=== PATIENT | female | born 1945 | race African-American/Black ===

== ENCOUNTER 2022-03-24 13:52 | Inpatient (IN) | payer OTHER ==
[~2022-03-24] VITALS: Ht 157.5 cm; Wt 70.4 kg
[2022-03-24 20:10] LABS: EOSINOPHILS % 3.4 % (0.0-5.0); HEMATOCRIT. 37.9 % (36.0-48.0); HEMOGLOBIN. 12.8 g/dL (12.0-16.0); LYMPHOCYTES % 32.9 % (20.0-50.0); MEAN CORPUSCULAR HEMOGLOBIN 27.6 pg (28.0-32.0); MEAN CORPUSCULAR VOLUME 81.8 fL (81.0-99.0); MEAN PLATELET VOLUME 8.4 fl (7.4-10.4); MONOCYTES % 5.2 % (2.0-8.0); NEUTROPHILS % 57.5 % (40.0-76.0); PLATELET 185 x1000/uL (130-400); RED BLOOD CELL COUNT 4.64 mill/uL (4.2-5.4); RED CELL DISTRIBUTION WIDTH 13.6 % (11.6-14.6)
[2022-03-24 20:18] LABS: CHLORIDE 103 mEq/L (98-107); INR 1.1; PROTHROMBIN TIME 11.9 sec (9.6-11.0)
[2022-03-24] MEDS ORDERED: MAGNESIUM/ALUMINUM HYDROXIDE/SIMETHICONE 30ML UDC PO STA (21:13)
[2022-03-24] MEDS ORDERED: POTASSIUM CHLORIDE 20MEQ TABLET SR PO ONE (21:15)
[2022-03-24] MEDS ORDERED: ASPIRIN 81MG TABLET PO ONE (21:15)
[2022-03-25] VITALS (7 sets, daily range): BP systolic 126–188; BP diastolic 63–86
[2022-03-25] MEDS ORDERED: DEXTROSE 50% WATER 50ML SYRINGE IV PRN ×2 (02:45→09:45)
[2022-03-25] MEDS ORDERED: CARV3.1242 MT (09:39)
[2022-03-25] MEDS ORDERED: CLOP75TA33 MT (09:40)
[2022-03-25] MEDS ORDERED: LOSA100T32 MT (09:41)
[2022-03-25] MEDS ORDERED: ASPI-1497 MT (09:42)
[2022-03-25] MEDS ORDERED: LABETALOL 5MG/ML SYR 20 MG/4 ML SYRINGE IV PRN (09:45)
[2022-03-25] MEDS ORDERED: IPRATROPIUM/ALBUTEROL 0.5-3(2.5)MG/3ML NEB HHN PRN (09:45)
[2022-03-25] MEDS ORDERED: DOCUSATE SODIUM 100MG CAPSULE PO PRN (09:45)
[2022-03-25] MEDS ORDERED: HYDROCODONE/ACETAMINOPHEN 5/325MG TABLET PO PRN (09:45)
[2022-03-25] MEDS ORDERED: ACETAMINOPHEN 325MG TABLET PO PRN ×2 (09:45)
[2022-03-25] MEDS: CLONIDINE 0.1MG TABLET PO PRN ×2 (09:55→17:26)
[2022-03-25] MEDS ORDERED: NALOXONE HCL 0.4MG/ML VIAL IV PRN (10:45)
[2022-03-25] MEDS: BLOOD SUGAR DIAGNOSTIC STRIP TEST SCH ×3 (11:50→20:59)
[2022-03-25] MEDS: INSULIN LISPRO 100 UNITS/ML SUBCUT SCH ×3 (12:20→20:59)
[2022-03-25] MEDS: LOSARTAN POTASSIUM 100 MG TABLET PO SCH (12:57)
[2022-03-25] MEDS: CLOPIDOGREL 75MG TABLET PO SCH (12:57)
[2022-03-25] MEDS ORDERED: POTASSIUM CHLORIDE 20MEQ/PACKET PO ONE (14:15)
[2022-03-25] MEDS: PANTOPRAZOLE SODIUM 40 MG/VIAL IV SCH (15:27)
[2022-03-25] MEDS: DEXT 5%/LACTATED RINGERS 1,000 ML IV SCH (15:28)
[2022-03-25] MEDS ORDERED: CARVEDILOL 3.125 MG TABLET PO SCH (17:00)
[2022-03-25] MEDS: CARVEDILOL 6.25 MG TABLET PO SCH (20:58)
[2022-03-26] VITALS: BP 147/76
[2022-03-26] MEDS: DEXT 5%/LACTATED RINGERS 1,000 ML IV SCH ×2 (03:19→17:30)
[2022-03-26 03:44] LABS: CLARITY URINE CLEAR (CLEAR); COLOR URINE YELLOW (YELLOW); KETONES URINE 2+ (NEGATIVE); LEUKOCYTE ESTERASE URINE 2+ (NEGATIVE); NITRITE URINE NEGATIVE (NEGATIVE); OCCULT BLOOD URINE NEGATIVE (NEGATIVE); PH URINE 5.5 (4.5-8.0); PROTEIN URINE TRACE (NEGATIVE); SPECIFIC GRAVITY URINE 1.016 (1.005-1.030)
[2022-03-26 04:00] VITALS: BP 145/96
[2022-03-26 05:59] LABS: BASOPHILS % 0.8 % (0.0-2.0); EOSINOPHILS % 3.6 % (0.0-5.0); HEMATOCRIT. 36.9 % (36.0-48.0); HEMOGLOBIN. 12.6 g/dL (12.0-16.0); LYMPHOCYTES % 20.5 % (20.0-50.0); MEAN CORPUSCULAR HEMOGLOBIN 27.9 pg (28.0-32.0); MEAN CORPUSCULAR VOLUME 81.4 fL (81.0-99.0); MEAN PLATELET VOLUME 8.6 fl (7.4-10.4); NEUTROPHILS % 68.1 % (40.0-76.0); PLATELET 149 x1000/uL (130-400); RED BLOOD CELL COUNT 4.53 mill/uL (4.2-5.4); RED CELL DISTRIBUTION WIDTH 13.5 % (11.6-14.6)
[2022-03-26] MEDS: INSULIN LISPRO 100 UNITS/ML SUBCUT SCH ×4 (06:32→21:00)
[2022-03-26] MEDS: BLOOD SUGAR DIAGNOSTIC STRIP TEST SCH ×4 (06:32→21:00)
[2022-03-26] MEDS ORDERED: POTASSIUM CHLORIDE 20MEQ TABLET SR PO NR (07:00)
[2022-03-26 08:00] VITALS: BP 198/64
[2022-03-26] MEDS: PANTOPRAZOLE SODIUM 40 MG/VIAL IV SCH (09:02)
[2022-03-26] MEDS: ASPIRIN 81MG EC TABLET PO SCH (09:03)
[2022-03-26] MEDS: CLOPIDOGREL 75MG TABLET PO SCH (09:03)
[2022-03-26] MEDS: CARVEDILOL 6.25 MG TABLET PO SCH ×2 (09:03→21:13)
[2022-03-26] MEDS: LOSARTAN POTASSIUM 100 MG TABLET PO SCH (09:03)
[2022-03-26] MEDS ORDERED: REGADENOSON 0.4 MG/5 ML IV NR (09:15)
[2022-03-26] MEDS: CLONIDINE 0.1MG TABLET PO PRN (10:36)
[2022-03-26] MEDS ORDERED: COR6 PO (11:55)
[2022-03-26] MEDS ORDERED: LORA-249 MT (11:55)
[2022-03-26] MEDS ORDERED: AMLO10TA80 PO (11:55)
[2022-03-26] MEDS ORDERED: PANT40TA51 MT (11:55)
[2022-03-26] MEDS ORDERED: NITR0.4T49 SL (11:55)
[2022-03-26 12:00] VITALS: BP 178/81
[2022-03-26] MEDS: AMLODIPINE 10MG TABLET PO SCH (13:03)
[2022-03-26 16:00] VITALS: BP 175/72
[2022-03-26 20:00] VITALS: BP 190/72
[2022-03-27] VITALS: BP 147/78
[2022-03-27] MEDS ORDERED: PANTOPRAZOLE SODIUM 40 MG/VIAL IV SCH (01:30)
[2022-03-27 04:00] VITALS: BP 189/85
[2022-03-27] MEDS: HYDRALAZINE 20MG/ML VIAL IV PRN (04:11)
[2022-03-27] MEDS: ONDANSETRON HCL 4MG/2ML INJ IV PRN ×3 (05:02→21:43)
[2022-03-27 06:31] LABS: BASOPHILS % 0.8 % (0.0-2.0); EOSINOPHILS % 4.3 % (0.0-5.0); HEMATOCRIT. 39.9 % (36.0-48.0); HEMOGLOBIN. 13.4 g/dL (12.0-16.0); MEAN CORPUSCULAR HEMOGLOBIN 27.2 pg (28.0-32.0); MEAN CORPUSCULAR VOLUME 81.3 fL (81.0-99.0); MEAN PLATELET VOLUME 8.5 fl (7.4-10.4); MONOCYTES % 6.5 % (2.0-8.0); NEUTROPHILS % 64.4 % (40.0-76.0); PLATELET 164 x1000/uL (130-400); RED CELL DISTRIBUTION WIDTH 13.4 % (11.6-14.6)
[2022-03-27] MEDS: DEXT 5%/LACTATED RINGERS 1,000 ML IV SCH (06:36)
[2022-03-27] MEDS: BLOOD SUGAR DIAGNOSTIC STRIP TEST SCH ×4 (06:45→21:12)
[2022-03-27] MEDS: INSULIN LISPRO 100 UNITS/ML SUBCUT SCH ×4 (06:46→21:00)
[2022-03-27 08:00] VITALS: BP 171/83
[2022-03-27] MEDS: SODIUM CHLORIDE 0.45% 1,000 ML IV SCH (08:45)
[2022-03-27] MEDS: ASPIRIN 81MG EC TABLET PO SCH (09:02)
[2022-03-27] MEDS: CLOPIDOGREL 75MG TABLET PO SCH (09:04)
[2022-03-27] MEDS: LOSARTAN POTASSIUM 100 MG TABLET PO SCH (09:04)
[2022-03-27] MEDS: CARVEDILOL 6.25 MG TABLET PO SCH ×2 (09:04→21:26)
[2022-03-27] MEDS: AMLODIPINE 10MG TABLET PO SCH (09:05)
[2022-03-27] MEDS: HYDRALAZINE HCL 50MG TABLET PO SCH ×2 (09:30→21:26)
[2022-03-27 11:59] LABS: CLARITY URINE CLEAR (CLEAR); COLOR URINE YELLOW (YELLOW); KETONES URINE 1+ (NEGATIVE); LEUKOCYTE ESTERASE URINE NEGATIVE (NEGATIVE); NITRITE URINE NEGATIVE (NEGATIVE); OCCULT BLOOD URINE 1+ (NEGATIVE); PROTEIN URINE NEGATIVE (NEGATIVE)
[2022-03-27 12:12] VITALS: BP 164/86
[2022-03-27] MEDS ORDERED: NA PHOS,M-B/NA PHOS,DI-BA ENEMA 118ML PR PRN (13:15)
[2022-03-27] MEDS ORDERED: BISACODYL 10MG SUPP PR PRN (13:15)
[2022-03-27] MEDS ORDERED: POTASSIUM CHLORIDE INJ 40 MEQ in DEXT 5% WATER 500 ML IV SCH (15:00)
[2022-03-27 16:00] VITALS: BP 146/82
[2022-03-27 20:00] VITALS: BP 132/63
[2022-03-27] MEDS: PANTOPRAZOLE SODIUM 40 MG/VIAL IV SCH (21:25)
[2022-03-28] VITALS (8 sets, daily range): BP systolic 124–187; BP diastolic 53–123
[2022-03-28] MEDS: SODIUM CHLORIDE 0.45% 1,000 ML IV SCH ×3 (01:33→18:02)
[2022-03-28 03:27] LABS: BASOPHILS % 0.7 % (0.0-2.0); EOSINOPHILS % 3.5 % (0.0-5.0); HEMATOCRIT. 38.5 % (36.0-48.0); HEMOGLOBIN. 13.2 g/dL (12.0-16.0); MEAN CORPUSCULAR HEMOGLOBIN 27.7 pg (28.0-32.0); MEAN CORPUSCULAR VOLUME 80.8 fL (81.0-99.0); MEAN PLATELET VOLUME 8.2 fl (7.4-10.4); MONOCYTES % 6.4 % (2.0-8.0); NEUTROPHILS % 69.4 % (40.0-76.0); PLATELET 154 x1000/uL (130-400); RED BLOOD CELL COUNT 4.76 mill/uL (4.2-5.4); RED CELL DISTRIBUTION WIDTH 13.6 % (11.6-14.6)
[2022-03-28 03:35] LABS: INR 1.1; PROTHROMBIN TIME 11.9 sec (9.6-11.0)
[2022-03-28 04:29] LABS: PHOSPHORUS 2.3 mg/dL (2.5-4.9)
[2022-03-28 04:46] LABS: FOLIC ACID (FOLATE) SERUM 4.8 ng/mL (>5.38)
[2022-03-28] MEDS: BLOOD SUGAR DIAGNOSTIC STRIP TEST SCH ×4 (07:10→20:18)
[2022-03-28] MEDS: INSULIN LISPRO 100 UNITS/ML SUBCUT SCH ×4 (07:10→20:18)
[2022-03-28] MEDS: HYDRALAZINE HCL 50MG TABLET PO SCH ×2 (08:48→20:10)
[2022-03-28] MEDS: AMLODIPINE 10MG TABLET PO SCH ×2 (08:48→09:00)
[2022-03-28] MEDS: CARVEDILOL 6.25 MG TABLET PO SCH ×2 (08:48→20:10)
[2022-03-28] MEDS: PANTOPRAZOLE SODIUM 40 MG/VIAL IV SCH ×2 (09:45→20:09)
[2022-03-28] MEDS: FOLIC ACID 1MG TABLET PO SCH (12:00)
[2022-03-28] MEDS ORDERED: ALBUTEROL (0.083%) 2.5MG/3ML NEB HHN PRN (12:15)
[2022-03-28] MEDS ORDERED: IPRATROPIUM BROMIDE (0.02%) 0.5MG/2.5ML NEB HHN PRN (12:15)
[2022-03-28] MEDS: ONDANSETRON HCL 4MG/2ML INJ IV PRN (13:14)
[2022-03-29] MEDS: SODIUM CHLORIDE 0.45% 1,000 ML IV SCH (03:29)
[2022-03-29 03:59] LABS: EOSINOPHILS % 4.3 % (0.0-5.0); HEMATOCRIT. 34.9 % (36.0-48.0); HEMOGLOBIN. 11.9 g/dL (12.0-16.0); LYMPHOCYTES % 24.9 % (20.0-50.0); MEAN CORPUSCULAR HEMOGLOBIN 27.5 pg (28.0-32.0); MEAN CORPUSCULAR VOLUME 80.4 fL (81.0-99.0); MEAN PLATELET VOLUME 8.1 fl (7.4-10.4); MONOCYTES % 6.6 % (2.0-8.0); NEUTROPHILS % 63.2 % (40.0-76.0); PLATELET 153 x1000/uL (130-400); RED BLOOD CELL COUNT 4.34 mill/uL (4.2-5.4); RED CELL DISTRIBUTION WIDTH 13.7 % (11.6-14.6)
[2022-03-29 04:09] LABS: INR 1.1
[2022-03-29 04:15] LABS: PHOSPHORUS 3.2 mg/dL (2.5-4.9)
[2022-03-29 04:19] VITALS: BP 134/96
[2022-03-29] MEDS ORDERED: POTASSIUM CHLORIDE INJ 40 MEQ in DEXT 5% WATER 250 ML IV NR ×2 (05:15→06:30)
[2022-03-29] MEDS ORDERED: MAGNESIUM SULFATE 3 GM in DEXT 5% WATER 96 ML IV NR (05:15)
[2022-03-29] MEDS: BLOOD SUGAR DIAGNOSTIC STRIP TEST SCH ×3 (06:38→21:32)
[2022-03-29] MEDS: INSULIN LISPRO 100 UNITS/ML SUBCUT SCH ×4 (07:20→21:00)
[2022-03-29 08:00] VITALS: BP 173/8
[2022-03-29] MEDS ORDERED: KCL 20MEQ/100ML PREMIX 100 ML IV NR (09:00)
[2022-03-29] MEDS: PANTOPRAZOLE SODIUM 40 MG/VIAL IV SCH ×2 (09:10→21:10)
[2022-03-29] MEDS: AMLODIPINE 10MG TABLET PO SCH (09:10)
[2022-03-29] MEDS: CARVEDILOL 6.25 MG TABLET PO SCH ×2 (09:10→21:00)
[2022-03-29] MEDS: FOLIC ACID 1MG TABLET PO SCH (09:11)
[2022-03-29] MEDS: HYDRALAZINE HCL 50MG TABLET PO SCH ×2 (09:11→21:00)
[2022-03-29] MEDS: ONDANSETRON HCL 4MG/2ML INJ IV PRN (09:29)
[2022-03-29] MEDS ORDERED: MAGNESIUM 4 G PREMIX 100 ML IV NR (10:00)
[2022-03-29 10:28] VITALS: BP 160/70
[2022-03-29 11:38] VITALS: BP 141/64
[2022-03-29] MEDS ORDERED: PROPOFOL 200MG/20ML VIAL IV ONE (13:09)
[2022-03-29] MEDS ORDERED: LIDOCAINE HCL 1% 10 MG/ML 10ML VIAL ONE (13:09)
[2022-03-29 16:00] VITALS: BP 137/53
[2022-03-29] MEDS: SUCRALFATE 1G TABLET PO SCH ×2 (16:18→21:10)
[2022-03-29] MEDS: METOCLOPRAMIDE HCL 10MG/2ML VIAL IV SCH ×2 (16:19→21:10)
[2022-03-29 20:45] VITALS: BP 108/44
[2022-03-29] MEDS: SUCRALFATE 1 G/10 ML UDC PO SCH (21:53)
[2022-03-30 00:22] VITALS: BP 135/74
[2022-03-30] MEDS: SODIUM CHLORIDE 0.45% 1,000 ML IV SCH ×2 (01:05→12:36)
[2022-03-30 04:18] VITALS: BP 116/51
[2022-03-30 05:38] LABS: BASOPHILS % 0.7 % (0.0-2.0); EOSINOPHILS % 2.7 % (0.0-5.0); HEMATOCRIT. 36.6 % (36.0-48.0); HEMOGLOBIN. 12.6 g/dL (12.0-16.0); LYMPHOCYTES % 24.7 % (20.0-50.0); MEAN CORPUSCULAR HEMOGLOBIN 27.5 pg (28.0-32.0); MEAN CORPUSCULAR VOLUME 80.2 fL (81.0-99.0); MEAN PLATELET VOLUME 8.5 fl (7.4-10.4); MONOCYTES % 7.5 % (2.0-8.0); NEUTROPHILS % 64.4 % (40.0-76.0); PLATELET 171 x1000/uL (130-400); RED BLOOD CELL COUNT 4.57 mill/uL (4.2-5.4); RED CELL DISTRIBUTION WIDTH 13.6 % (11.6-14.6)
[2022-03-30 06:04] LABS: PHOSPHORUS 2.9 mg/dL (2.5-4.9)
[2022-03-30] MEDS: SUCRALFATE 1 G/10 ML UDC PO SCH ×4 (06:18→20:52)
[2022-03-30] MEDS: METOCLOPRAMIDE HCL 10MG/2ML VIAL IV SCH ×4 (06:18→20:53)
[2022-03-30] MEDS: BLOOD SUGAR DIAGNOSTIC STRIP TEST SCH ×4 (06:27→20:53)
[2022-03-30] MEDS: INSULIN LISPRO 100 UNITS/ML SUBCUT SCH ×4 (07:20→20:56)
[2022-03-30 08:00] VITALS: BP 154/76
[2022-03-30] MEDS: PANTOPRAZOLE SODIUM 40 MG/VIAL IV SCH ×2 (09:32→20:53)
[2022-03-30] MEDS: HYDRALAZINE HCL 50MG TABLET PO SCH ×2 (09:33→20:53)
[2022-03-30] MEDS: CARVEDILOL 6.25 MG TABLET PO SCH ×2 (09:33→20:53)
[2022-03-30] MEDS: CLOPIDOGREL 75MG TABLET PO SCH (09:33)
[2022-03-30] MEDS: ASPIRIN 81MG EC TABLET PO SCH (09:33)
[2022-03-30] MEDS: FOLIC ACID 1MG TABLET PO SCH (09:33)
[2022-03-30] MEDS: AMLODIPINE 10MG TABLET PO SCH (09:33)
[2022-03-30 12:00] VITALS: BP 113/66
[2022-03-30] MEDS ORDERED: BISACODYL 5MG TABLET PO NR (13:15)
[2022-03-30 16:00] VITALS: BP 142/65
[2022-03-30 20:00] VITALS: BP 142/75
[2022-03-31] VITALS: BP 132/45
[2022-03-31] MEDS: SODIUM CHLORIDE 0.45% 1,000 ML IV SCH (01:24)
[2022-03-31] MEDS: ONDANSETRON HCL 4MG/2ML INJ IV PRN ×2 (02:12→09:22)
[2022-03-31 04:00] VITALS: BP 140/95
[2022-03-31] MEDS: SUCRALFATE 1 G/10 ML UDC PO SCH ×4 (06:52→21:56)
[2022-03-31] MEDS: METOCLOPRAMIDE HCL 10MG/2ML VIAL IV SCH ×3 (06:52→17:24)
[2022-03-31] MEDS: BLOOD SUGAR DIAGNOSTIC STRIP TEST SCH ×4 (06:59→21:57)
[2022-03-31] MEDS: INSULIN LISPRO 100 UNITS/ML SUBCUT SCH ×4 (07:20→21:00)
[2022-03-31 08:00] VITALS: BP 140/64
[2022-03-31] MEDS: PANTOPRAZOLE SODIUM 40 MG/VIAL IV SCH (09:20)
[2022-03-31] MEDS: AMLODIPINE 10MG TABLET PO SCH (09:21)
[2022-03-31] MEDS: HYDRALAZINE HCL 50MG TABLET PO SCH ×2 (09:21→21:57)
[2022-03-31] MEDS: CARVEDILOL 6.25 MG TABLET PO SCH ×2 (09:21→21:57)
[2022-03-31] MEDS: FOLIC ACID 1MG TABLET PO SCH (09:21)
[2022-03-31] MEDS: ASPIRIN 81MG EC TABLET PO SCH (09:21)
[2022-03-31] MEDS: CLOPIDOGREL 75MG TABLET PO SCH (09:36)
[2022-03-31 12:00] VITALS: BP 155/76
[2022-03-31] MEDS: HYDRALAZINE 20MG/ML VIAL IV PRN ×2 (12:29→14:21)
[2022-03-31 16:00] VITALS: BP 134/62
[2022-03-31 20:00] VITALS: BP 142/50
[2022-03-31] MEDS ORDERED: ONDANSETRON HCL 4MG/2ML INJ IV PRN (21:15)
[2022-03-31] MEDS: ONDANSETRON HCL 4MG/2ML INJ IV SCH (21:56)
[2022-03-31] MEDS: OMEPRAZOLE 20MG CAPSULE EXTENDED RELEASE PO SCH (21:56)
[2022-04-01] VITALS (7 sets, daily range): BP systolic 110–163; BP diastolic 59–83
[2022-04-01] MEDS: SODIUM CHLORIDE 0.45% 1,000 ML IV SCH ×3 (00:59→16:38)
[2022-04-01] MEDS: SUCRALFATE 1 G/10 ML UDC PO SCH ×4 (06:54→20:41)
[2022-04-01] MEDS: METOCLOPRAMIDE HCL 10MG/2ML VIAL IV SCH ×4 (06:54→20:42)
[2022-04-01 06:55] LABS: BASOPHILS % 0.7 % (0.0-2.0); EOSINOPHILS % 1.8 % (0.0-5.0); HEMATOCRIT. 39.3 % (36.0-48.0); HEMOGLOBIN. 13.5 g/dL (12.0-16.0); LYMPHOCYTES % 27.6 % (20.0-50.0); MEAN CORPUSCULAR HEMOGLOBIN 27.7 pg (28.0-32.0); MEAN CORPUSCULAR VOLUME 80.9 fL (81.0-99.0); MEAN PLATELET VOLUME 8.4 fl (7.4-10.4); MONOCYTES % 6.2 % (2.0-8.0); NEUTROPHILS % 63.7 % (40.0-76.0); PLATELET 218 x1000/uL (130-400); RED BLOOD CELL COUNT 4.86 mill/uL (4.2-5.4); RED CELL DISTRIBUTION WIDTH 13.5 % (11.6-14.6)
[2022-04-01] MEDS: OMEPRAZOLE 20MG CAPSULE EXTENDED RELEASE PO SCH ×2 (06:55→20:41)
[2022-04-01 07:02] LABS: CHLORIDE 100 mEq/L (98-107)
[2022-04-01] MEDS: BLOOD SUGAR DIAGNOSTIC STRIP TEST SCH ×4 (07:08→20:42)
[2022-04-01] MEDS: INSULIN LISPRO 100 UNITS/ML SUBCUT SCH ×4 (07:20→20:51)
[2022-04-01] MEDS: CLOPIDOGREL 75MG TABLET PO SCH (07:47)
[2022-04-01] MEDS: ASPIRIN 81MG EC TABLET PO SCH (07:47)
[2022-04-01] MEDS: HYDRALAZINE HCL 50MG TABLET PO SCH (07:48)
[2022-04-01] MEDS: CARVEDILOL 6.25 MG TABLET PO SCH ×2 (07:48→20:51)
[2022-04-01] MEDS: AMLODIPINE 10MG TABLET PO SCH (07:48)
[2022-04-01] MEDS: FOLIC ACID 1MG TABLET PO SCH (07:51)
[2022-04-01] MEDS ORDERED: POTASSIUM CHLORIDE INJ 40 MEQ in DEXT 5% WATER 250 ML IV ONE (09:45)
[2022-04-01] MEDS: ONDANSETRON HCL 4MG/2ML INJ IV SCH (11:34)
[2022-04-01] MEDS: KCL 20MEQ/100ML X 2 FOR TOTAL KCL 40MEQ/200ML IV SCH (11:48)
[2022-04-01] MEDS: HYDRALAZINE 20MG/ML VIAL IV PRN (16:43)
[2022-04-01 17:11] LABS: 25-HYDROXY VITAMIN D3 7.1 ng/mL (.)
[2022-04-02] VITALS (7 sets, daily range): BP systolic 106–143; BP diastolic 34–91
[2022-04-02] MEDS: HYDRALAZINE HCL 50MG TABLET PO SCH ×4 (00:24→21:36)
[2022-04-02] MEDS: SODIUM CHLORIDE 0.45% 1,000 ML IV SCH ×3 (00:25→16:59)
[2022-04-02] MEDS: SUCRALFATE 1 G/10 ML UDC PO SCH ×4 (05:57→21:35)
[2022-04-02] MEDS: METOCLOPRAMIDE HCL 10MG/2ML VIAL IV SCH ×4 (05:57→21:35)
[2022-04-02] MEDS: OMEPRAZOLE 20MG CAPSULE EXTENDED RELEASE PO SCH ×3 (05:58→21:37)
[2022-04-02] MEDS: BLOOD SUGAR DIAGNOSTIC STRIP TEST SCH ×4 (06:20→21:57)
[2022-04-02 07:11] LABS: CHLORIDE 102 mEq/L (98-107)
[2022-04-02] MEDS ORDERED: POTASSIUM CHLORIDE 20MEQ TABLET SR PO NR (07:15)
[2022-04-02] MEDS: INSULIN LISPRO 100 UNITS/ML SUBCUT SCH ×4 (07:20→21:00)
[2022-04-02 07:25] LABS: BASOPHILS % 0.9 % (0.0-2.0); EOSINOPHILS % 2.6 % (0.0-5.0); HEMATOCRIT. 38.4 % (36.0-48.0); HEMOGLOBIN. 13.1 g/dL (12.0-16.0); LYMPHOCYTES % 35.4 % (20.0-50.0); MEAN CORPUSCULAR HEMOGLOBIN 27.7 pg (28.0-32.0); MEAN CORPUSCULAR VOLUME 81.2 fL (81.0-99.0); MEAN PLATELET VOLUME 8.6 fl (7.4-10.4); MONOCYTES % 7.6 % (2.0-8.0); NEUTROPHILS % 53.5 % (40.0-76.0); PLATELET 249 x1000/uL (130-400); RED BLOOD CELL COUNT 4.73 mill/uL (4.2-5.4); RED CELL DISTRIBUTION WIDTH 13.8 % (11.6-14.6)
[2022-04-02] MEDS: ASPIRIN 81MG EC TABLET PO SCH (08:38)
[2022-04-02] MEDS: CLOPIDOGREL 75MG TABLET PO SCH (08:38)
[2022-04-02] MEDS: FOLIC ACID 1MG TABLET PO SCH (08:38)
[2022-04-02] MEDS: AMLODIPINE 10MG TABLET PO SCH ×2 (08:39→09:03)
[2022-04-02] MEDS: CARVEDILOL 6.25 MG TABLET PO SCH ×3 (08:40→21:36)
[2022-04-02] MEDS: ONDANSETRON HCL 4MG/2ML INJ IV SCH (12:34)
[2022-04-02] MEDS ORDERED: CEFTRIAXONE 1 G PREMIX 50 ML IV SCH (22:45)
[2022-04-03 00:06] VITALS: BP 161/93
[2022-04-03] MEDS: SODIUM CHLORIDE 0.45% 1,000 ML IV SCH ×2 (00:09→17:05)
[2022-04-03] MEDS: CEFTRIAXONE 1,000 MG in DEXTROSE 5% WATER 50 ML IV SCH (00:09)
[2022-04-03 04:26] VITALS: BP 129/55
[2022-04-03] MEDS: METOCLOPRAMIDE HCL 10MG/2ML VIAL IV SCH ×3 (06:01→16:49)
[2022-04-03] MEDS: SUCRALFATE 1 G/10 ML UDC PO SCH ×5 (06:01→22:25)
[2022-04-03] MEDS: OMEPRAZOLE 20MG CAPSULE EXTENDED RELEASE PO SCH ×2 (06:02→22:24)
[2022-04-03] MEDS: BLOOD SUGAR DIAGNOSTIC STRIP TEST SCH ×4 (06:13→21:00)
[2022-04-03] MEDS ORDERED: HYDRALAZINE 10 MG in SODIUM CHLORIDE 0.9% 49.5 ML IV PRN (07:00)
[2022-04-03] MEDS: INSULIN LISPRO 100 UNITS/ML SUBCUT SCH ×3 (07:50→21:00)
[2022-04-03 08:00] VITALS: BP 165/70
[2022-04-03] MEDS: HYDRALAZINE HCL 50MG TABLET PO SCH ×2 (10:07→22:23)
[2022-04-03] MEDS: CARVEDILOL 6.25 MG TABLET PO SCH ×2 (10:09→22:23)
[2022-04-03] MEDS: FOLIC ACID 1MG TABLET PO SCH (10:10)
[2022-04-03] MEDS: ASPIRIN 81MG EC TABLET PO SCH (10:10)
[2022-04-03] MEDS: AMLODIPINE 10MG TABLET PO SCH (10:10)
[2022-04-03] MEDS: CLOPIDOGREL 75MG TABLET PO SCH (10:11)
[2022-04-03 12:00] VITALS: BP 99/96
[2022-04-03] MEDS: ONDANSETRON HCL 4MG/2ML INJ IV SCH (14:04)
[2022-04-03] MEDS ORDERED: ERGOCALCIFEROL 50000UNITS CAPSULE PO SCH (14:45)
[2022-04-03 15:59] VITALS: BP 119/51
[2022-04-03 16:04] LABS: BASOPHILS % 0.8 % (0.0-2.0); EOSINOPHILS % 2.8 % (0.0-5.0); HEMATOCRIT. 38.6 % (36.0-48.0); HEMOGLOBIN. 12.9 g/dL (12.0-16.0); LYMPHOCYTES % 27.5 % (20.0-50.0); MEAN CORPUSCULAR HEMOGLOBIN 27.5 pg (28.0-32.0); MEAN CORPUSCULAR VOLUME 82.5 fL (81.0-99.0); MEAN PLATELET VOLUME 8.3 fl (7.4-10.4); MONOCYTES % 8.3 % (2.0-8.0); NEUTROPHILS % 60.6 % (40.0-76.0); PLATELET 240 x1000/uL (130-400); RED BLOOD CELL COUNT 4.67 mill/uL (4.2-5.4); RED CELL DISTRIBUTION WIDTH 13.6 % (11.6-14.6)
[2022-04-03 16:35] LABS: CHLORIDE 105 mEq/L (98-107)
[2022-04-03 20:00] VITALS: BP 157/69
[2022-04-04] VITALS: BP 150/69
[2022-04-04] MEDS: CEFTRIAXONE 1,000 MG in DEXTROSE 5% WATER 50 ML IV SCH (00:37)
[2022-04-04] MEDS: METOCLOPRAMIDE HCL 10MG/2ML VIAL IV SCH ×4 (00:37→12:30)
[2022-04-04] MEDS: SODIUM CHLORIDE 0.45% 1,000 ML IV SCH (00:41)
[2022-04-04 04:00] VITALS: BP 147/57
[2022-04-04] MEDS: OMEPRAZOLE 20MG CAPSULE EXTENDED RELEASE PO SCH (05:43)
[2022-04-04] MEDS: SUCRALFATE 1 G/10 ML UDC PO SCH ×2 (05:44→12:29)
[2022-04-04 06:39] LABS: CHLORIDE 104 mEq/L (98-107)
[2022-04-04] MEDS: INSULIN LISPRO 100 UNITS/ML SUBCUT SCH ×2 (07:39→12:50)
[2022-04-04] MEDS: BLOOD SUGAR DIAGNOSTIC STRIP TEST SCH ×2 (07:39→12:20)
[2022-04-04 07:48] VITALS: BP 156/57
[2022-04-04] MEDS: CLOPIDOGREL 75MG TABLET PO SCH (08:41)
[2022-04-04] MEDS: FOLIC ACID 1MG TABLET PO SCH (08:41)
[2022-04-04] MEDS: CARVEDILOL 6.25 MG TABLET PO SCH (08:41)
[2022-04-04] MEDS: ASPIRIN 81MG EC TABLET PO SCH (08:41)
[2022-04-04] MEDS: AMLODIPINE 10MG TABLET PO SCH (09:00)
[2022-04-04] MEDS: HYDRALAZINE HCL 50MG TABLET PO SCH (09:00)
[2022-04-04 09:21] LABS: EOSINOPHILS % 3.4 % (0.0-5.0); HEMATOCRIT. 40.7 % (36.0-48.0); HEMOGLOBIN. 13.9 g/dL (12.0-16.0); LYMPHOCYTES % 29.1 % (20.0-50.0); MEAN CORPUSCULAR VOLUME 81.7 fL (81.0-99.0); MEAN PLATELET VOLUME 8.1 fl (7.4-10.4); MONOCYTES % 7.1 % (2.0-8.0); NEUTROPHILS % 59.4 % (40.0-76.0); PLATELET 220 x1000/uL (130-400); RED BLOOD CELL COUNT 4.98 mill/uL (4.2-5.4); RED CELL DISTRIBUTION WIDTH 13.9 % (11.6-14.6)
[2022-04-04 12:00] VITALS: BP 122/59
[2022-04-04] MEDS: ONDANSETRON HCL 4MG/2ML INJ IV SCH ×2 (12:00→12:29)
[2022-04-04 15:49] VITALS: BP 143/52
[2022-04-04 16:38] VITALS: BP 143/53
== END 2022-04-04 17:40 | disposition home health service (06) | DRG 391 ==
LOC: ER 14:35 → MICUSO 22:04 → 3WST 03-25 09:26 → 6EST 04-03 06:27
PROVIDERS: ADMIT Internal Medicine; ATTEND Internal Medicine
PROC: 0DB48ZX Excision of Esophagogastric Junction, Via Natural or Artificial Opening Endoscopic, Diagnostic (ICD-10-PCS; principal; 2022-03-31)
PROC: 0DB78ZX Excision of Stomach, Pylorus, Via Natural or Artificial Opening Endoscopic, Diagnostic (ICD-10-PCS; 2022-03-31)
DX: K22.2 Esophageal obstruction (principal); G93.41 Metabolic encephalopathy; I50.32 Chronic diastolic (congestive) heart failure; E44.1 Mild protein-calorie malnutrition; N17.9 Acute kidney failure, unspecified; R78.81 Bacteremia; I11.0 Hypertensive heart disease with heart failure; E16.2 Hypoglycemia, unspecified; Z20.822 Contact with and (suspected) exposure to COVID-19; E87.6 Hypokalemia; E78.5 Hyperlipidemia, unspecified; E78.00 Pure hypercholesterolemia, unspecified; F03.A0 Unspecified dementia, mild, without behavioral disturbance, psychotic disturbance, mood disturbance, and anxiety; K57.90 Diverticulosis of intestine, part unspecified, without perforation or abscess without bleeding; K29.70 Gastritis, unspecified, without bleeding; E55.9 Vitamin D deficiency, unspecified; I45.10 Unspecified right bundle-branch block; R26.9 Unspecified abnormalities of gait and mobility; E53.8 Deficiency of other specified B group vitamins; R13.19 Other dysphagia; K44.9 Diaphragmatic hernia without obstruction or gangrene; Z82.49 Family history of ischemic heart disease and other diseases of the circulatory system; Z95.5 Presence of coronary angioplasty implant and graft; Z79.899 Other long term (current) drug therapy; Z68.28 Body mass index [BMI] 28.0-28.9, adult
CPT/HCPCS: 36415; 70551; 71045; 74018; 74176; 76700; 78452; 80048; 80053; 80076; 81003; 82140; 82306; 82533; 82550; 82607; 82746; 82962; 83036; 83735; 84100; 84145; 84443; 84484; 85025; 85379; 87426; 88305; 92523; 92610; 93005; 93306; 97116; 97162; 97166; 97530; 97535; 99285; A9500; C1893; C9113; J0360; J0696; J2405; J2704; J2765; J2785; J3475; J3480; J3490; J7060; J7121